=== PATIENT | female | born 2000 | race Asian ===

== ENCOUNTER 2020-08-29 13:31 | Emergency (ER) | payer OTHER ==
[~2020-08-29] VITALS: Ht 152.4 cm; Wt 90.7 kg
[2020-08-29 13:37] VITALS: BP 136/80; TEMP 98.8
== END 2020-08-29 15:55 | disposition home or self-care (01) ==
LOC: ED 13:31
DX: J02.9 Acute pharyngitis, unspecified (principal); J30.89 Other allergic rhinitis
CPT/HCPCS: 87651; 99283

== ENCOUNTER 2020-10-07 02:52 | Emergency (ER) | payer OTHER ==
[~2020-10-07] VITALS: Ht 152.4 cm; Wt 88.0 kg
[2020-10-07 02:58] VITALS: TEMP 98.6
[2020-10-07 03:44] LABS: PLATELET COUNT 248 K/uL (152-353)
[2020-10-07 04:57] VITALS: BP 93/60
== END 2020-10-07 04:55 | disposition home or self-care (01) ==
LOC: ED 02:52
PROVIDERS: Family Medicine
DX: J35.1 Hypertrophy of tonsils (principal); J02.9 Acute pharyngitis, unspecified
CPT/HCPCS: 36415; 80053; 85027; 87651; 99282; 99283

== ENCOUNTER 2020-12-04 17:50 | Emergency (ER) | payer OTHER ==
[~2020-12-04] VITALS: Ht 152.4 cm; Wt 88.0 kg
[2020-12-04 19:45] VITALS: BP 132/86; TEMP 98.8
== END 2020-12-04 19:45 | disposition home or self-care (01) ==
LOC: ED 17:50
DX: J02.0 Streptococcal pharyngitis (principal); Z20.828 Contact with and (suspected) exposure to other viral communicable diseases
CPT/HCPCS: 81000; 81025; 87502; 87635; 87651; 99283; U0003

== ENCOUNTER 2021-02-24 01:19 | Emergency (ER) | payer OTHER ==
[~2021-02-24] VITALS: Ht 144.8 cm; Wt 95.3 kg
[2021-02-24 02:01] LABS: PLATELET COUNT 264 K/uL (152-353)
[2021-02-24 02:05] LABS: POTASSIUM 3.8 mmol/L (3.6-5.2)
[2021-02-24 03:18] VITALS: BP 130/73; TEMP 98.7
== END 2021-02-24 03:20 | disposition home or self-care (01) ==
LOC: ED 01:19
PROVIDERS: Family Medicine
DX: N39.0 Urinary tract infection, site not specified (principal); K52.89 Other specified noninfective gastroenteritis and colitis; R11.2 Nausea with vomiting, unspecified
CPT/HCPCS: 36415; 80053; 81000; 81025; 82150; 83690; 85027; 87086; 87088; 96360; 96365; 96374; 96375; 96376; 99284; J0696; J1885; J2405

== ENCOUNTER 2021-04-05 16:33 | Emergency (ER) | payer OTHER ==
[~2021-04-05] VITALS: Ht 144.8 cm; Wt 95.3 kg
[2021-04-05 18:40] VITALS: BP 124/75; TEMP 97.7
== END 2021-04-05 18:40 | disposition home or self-care (01) ==
LOC: ED 16:33
DX: S16.1XXA Strain of muscle, fascia and tendon at neck level, initial encounter (principal); S39.012A Strain of muscle, fascia and tendon of lower back, initial encounter; V43.52XA Car driver injured in collision with other type car in traffic accident, initial encounter; Y92.89 Other specified places as the place of occurrence of the external cause
CPT/HCPCS: 96372; 99283; J1885

== ENCOUNTER 2021-05-21 19:22 | Emergency (ER) | payer OTHER ==
[~2021-05-21] VITALS: Ht 144.8 cm; Wt 97.5 kg
[2021-05-21 20:55] LABS: PLATELET COUNT 235 K/uL (152-353)
[2021-05-21 21:03] LABS: POTASSIUM 3.8 mmol/L (3.6-5.2)
[2021-05-21 22:10] VITALS: BP 126/79; TEMP 99.5
== END 2021-05-21 22:10 | disposition home or self-care (01) ==
LOC: ED 19:22
PROVIDERS: Emergency Medicine Emergency Medical Services
DX: U07.1 COVID-19 (principal); N39.0 Urinary tract infection, site not specified; R82.998 Other abnormal findings in urine; R51.9 Headache, unspecified
CPT/HCPCS: 36415; 80048; 81000; 81025; 85027; 87635; 96360; 96365; 99284; J0696; U0003